=== PATIENT | female | born 1985 | race Caucasian/White ===

== ENCOUNTER 2016-08-10 14:37 | Emergency (ER) | payer SELFPAY ==
[~2016-08-10] VITALS: Ht 157.5 cm; Wt 86.4 kg
[~2016-08-10 14:37] MED LIST: ABILIFY5 MG PO; ADVIL 200MG TA200 MG PO; AMOXICILLIN 50500 MG PO; AMOXICILLIN 8751 TAB PO; BACTRIM DS 8001 TAB PO; BCP TD; BIRTH CONTROL; CEPHALEXIN500 M1 PO; CIPRO 500MG TA500 MG PO; DOXYCYCLINE 10100 MG PO; FLEET 135 ML135 ML RC; FLONASE NASAL S16 GM NS; FOLIC ACID; LORTAB 5/500 501 TAB PO; LORTAB 7.5/5001 TAB PO; MACROBID 1100 MG/CAP PO; MACROBID100 MG PO; MIRENA52 MG IU; MVI; NO HOME MEDICATIONS; NORCO 325 MG-51 TAB PO; OMNICEF 300MG300 MG PO; PHENERGAN 25 TA25 MG PO; PHENERGAN12.5 M1 PO; PRENATAL VITAMI1 TA5 PO; PRISTIQ 50 MG T50 MG PO; PROZAC40 MG PO; TYLENOL PM EXTR1 TA1 PO; ULTRAM50 MG PO; XANAX .25M0.25 MG/TA PO; ZANTAC 150150 MG PO; ZANTAC150 MG PO; ZOFRAN4 MG PO; ZYRTEC 10MG10 MG PO; [UNRECOGNIZED DRUG - OTHER]
[2016-08-10 14:42] VITALS: BP 147/88
[2016-08-10] MEDS ORDERED: DEPAKOTE 250MG250 MG PO (14:45)
[2016-08-10 15:31] LABS: AMPHETAMINE URINE NEGATIVE; BARBITURATES URINE NEGATIVE; BENZODIAZEPINES URINE NEGATIVE; BUPRENORPHINE URINE NEGATIVE; METHADONE URINE NEGATIVE; OPIATES URINE NEGATIVE; OXYCODONE URINE NEGATIVE; PHENCYCLIDINE URINE NEGATIVE; PROPOXYPHENE URINE NEGATIVE; THC CANNABINOIDS URINE POSITIVE
[2016-08-10 15:41] LABS: BASO % 0.4 % (0.0-2.0); EOS # 0.2 (0.0-0.7); EOS % 1.9 % (0-4.0); GRAN # 7.4 (1.4-6.5); GRAN % 73.8 % (42.2-75.2); HEMATOCRIT 42.9 % (37.0-47.0); HEMOGLOBIN 13.7 g/dl (12.5-16.0); LYMPH # 1.8 (1.2-3.4); LYMPH % 17.8 % (20.0-51.0); MEAN CELL VOLUME 89 fl (80.0-100.0); MEAN CORPUSCULAR HEMOGLOBIN 28 pg (27.0-31.0); MEAN CORPUSCULAR HGB CONC 32 g/dl (33.0-37.0); MEAN PLATELET VOLUME 9.4 fl (7.4-10.4); MONO # 0.6 (0.1-0.6); MONO % 5.8 % (1.7-9.3); PLATELET COUNT 318 K/mm3 (130-400); RED BLOOD COUNT 4.82 M/mm3 (4.10-5.30); REDCELL DISTRIBUTION WIDTH-CV 12.7 % (11.5-14.5)
[2016-08-10 16:22] LABS: ACETAMINOPHEN < 10 ug/mL (10-30); ADJUSTED CALCIUM 9.4 mg/dL (8.4-10.2); ALANINE AMINOTRANSFERASE 22 U/L (9-52); ALBUMIN 4.4 gm/dL (3.5-5.0); ALKALINE PHOSPHATASE 97 U/L (50-136); ANION GAP 13 mmol/L (7-16); BILIRUBIN,TOTAL 0.7 mg/dL (0.0-1.0); BLOOD UREA NITROGEN 10 mg/dL (7-17); CALCIUM 9.7 mg/dL (8.4-10.2); CARBON DIOXIDE 25 mmol/L (22-30); CHLORIDE 102 mmol/L (98-107); CREATININE, serum 0.77 mg/dL (0.52-1.25); GLUCOSE 101 mg/dL (74-106); POTASSIUM 3.7 mmol/L (3.4-5.0); SALICYLATE < 1.0 mg/dL; SODIUM 140 mmol/L (137-145); TOTAL PROTEIN 7.7 gm/dL (6.4-8.2)
[2016-08-10 16:29] VITALS: PULSE 92
[2016-10-31] MEDS ORDERED: OMNICEF 300MG300 MG PO (23:22)
== END 2016-08-10 19:22 | disposition home or self-care (01) ==
LOC: COL.ER 14:37
PROVIDERS: Nurse Practitioner
DX: F32.9 Major depressive disorder, single episode, unspecified (principal); R45.851 Suicidal ideations; Z91.5 Personal history of self-harm; T42.6X6A Underdosing of other antiepileptic and sedative-hypnotic drugs, initial encounter

== ENCOUNTER 2016-10-30 10:50 | Emergency (ER) | payer SELFPAY ==
[~2016-10-30] VITALS: Ht 157.5 cm; Wt 86.4 kg
[~2016-10-30 10:50] MED LIST changes: +DEPAKOTE 250MG250 MG PO
[2016-10-30 10:54] VITALS: TEMP 98
[2016-10-30] MEDS ORDERED: VRAYLAR3 MG PO (11:19)
[2016-10-30 11:49] LABS: PH 7 (5-8); SQUAMOUS EPITHELIAL 0-2 /hpf; URINE APPEARANCE Cloudy; URINE BACTERIA Rare /hpf; URINE BILIRUBIN Negative (NEGATIVE); URINE BLOOD 1+ (NEGATIVE); URINE COLOR Yellow; URINE GLUCOSE Negative (NEGATIVE); URINE KETONE Negative (NEGATIVE); URINE RBC 20-50 /hpf; URINE UROBILINOGEN Negative (NEGATIVE); URINE WBC >50 /hpf
[2016-10-30 11:55] LABS: BASO % 0.2 % (0.0-2.0); EOS # 0.1 (0.0-0.7); EOS % 0.9 % (0-4.0); GRAN # 5.8 (1.4-6.5); GRAN % 70.2 % (42.2-75.2); LYMPH # 1.9 (1.2-3.4); LYMPH % 22.7 % (20.0-51.0); MEAN CELL VOLUME 89 fl (80.0-100.0); MEAN CORPUSCULAR HEMOGLOBIN 29 pg (27.0-31.0); MEAN CORPUSCULAR HGB CONC 33 g/dl (33.0-37.0); MONO # 0.5 (0.1-0.6); MONO % 5.6 % (1.7-9.3); PLATELET COUNT 250 K/mm3 (130-400); RED BLOOD COUNT 4.14 M/mm3 (4.10-5.30); REDCELL DISTRIBUTION WIDTH-CV 12.7 % (11.5-14.5); WHITE BLOOD COUNT 8.2 K/mm3 (4.8-10.8)
[2016-10-30 11:56] LABS: HEMATOCRIT 36.7 % (37.0-47.0)
[2016-10-30 12:11] LABS: ADJUSTED CALCIUM 9.1 mg/dL (8.4-10.2); ALANINE AMINOTRANSFERASE 12 U/L (9-52); ALKALINE PHOSPHATASE 66 U/L (50-136); ANION GAP 14 mmol/L (7-16); BILIRUBIN,TOTAL 0.3 mg/dL (0.0-1.0); BLOOD UREA NITROGEN 10 mg/dL (7-17); CALCIUM 9.1 mg/dL (8.4-10.2); CARBON DIOXIDE 20 mmol/L (22-30); CHLORIDE 108 mmol/L (98-107); CREATININE, serum 0.73 mg/dL (0.52-1.25); GLUCOSE 84 mg/dL (74-106); POTASSIUM 3.8 mmol/L (3.4-5.0); SODIUM 141 mmol/L (137-145); TOTAL PROTEIN 7.5 gm/dL (6.4-8.2)
[2016-10-30 12:25] LABS: TROPONIN-I < 0.012 ng/mL (0.000-0.034)
[2016-10-30 12:27] LABS: PROLACTIN 24.6 ng/mL (3.0-18.6)
[2016-10-30 12:45] VITALS: BP 116/68; PULSE 86
[2016-10-31] MEDS ORDERED: OMNICEF 300MG300 MG PO (23:22)
== END 2016-10-30 12:46 | disposition home or self-care (01) ==
LOC: COL.ER 10:50
PROVIDERS: Emergency Medicine
DX: R56.9 Unspecified convulsions (principal); R53.81 Other malaise; R53.83 Other fatigue; F99 Mental disorder, not otherwise specified
CPT/HCPCS: J2405; J7030

== ENCOUNTER 2017-03-03 11:55 | Emergency (ER) | payer MEDICAID ==
[~2017-03-03] VITALS: Ht 157.5 cm; Wt 85.9 kg
[~2017-03-03 11:55] MED LIST changes: +VRAYLAR3 MG PO
[2017-03-03 11:59] VITALS: TEMP 99.3
[2017-03-03] MEDS ORDERED: MACROBID 1100 MG/CAP PO (12:02)
[2017-03-03] MEDS ORDERED: ZOFRAN 4MG T4 MG/TAB PO (12:02)
[2017-03-03 12:53] LABS: BASO % 0.3 % (0.0-2.0); EOS # 0.1 (0.0-0.7); EOS % 0.6 % (0-4.0); GRAN # 7.5 (1.4-6.5); GRAN % 76.9 % (42.2-75.2); LYMPH # 1.5 (1.2-3.4); LYMPH % 15.6 % (20.0-51.0); MEAN CELL VOLUME 88 fl (80.0-100.0); MEAN CORPUSCULAR HGB CONC 33 g/dl (33.0-37.0); MONO # 0.6 (0.1-0.6); MONO % 6.1 % (1.7-9.3); PLATELET COUNT 240 K/mm3 (130-400); RED BLOOD COUNT 4.02 M/mm3 (4.10-5.30); WHITE BLOOD COUNT 9.7 K/mm3 (4.8-10.8)
[2017-03-03 12:58] LABS: HEMATOCRIT 35.4 % (37.0-47.0); HEMOGLOBIN 11.5 g/dl (12.5-16.0); MEAN CORPUSCULAR HEMOGLOBIN 29 pg (27.0-31.0)
[2017-03-03 13:05] LABS: COLLECTION METHOD CLEAN CATCH
[2017-03-03 13:26] LABS: BUDDING YEAST Present /hpf; MUCOUS Present /lpf; PH 7 (5-8); URINE APPEARANCE Clear; URINE BACTERIA Rare /hpf; URINE BILIRUBIN Negative (NEGATIVE); URINE BLOOD Negative (NEGATIVE); URINE COLOR Yellow; URINE GLUCOSE Negative (NEGATIVE); URINE KETONE Trace (NEGATIVE); URINE LEUKOCYTE ESTERASE 3+ (NEGATIVE); URINE PROTEIN(semi-quant) Negative (NEGATIVE)
[2017-03-03 13:35] LABS: URINE WBC 20-50 /hpf
[2017-03-03 14:02] LABS: ADJUSTED CALCIUM 8.8 mg/dL (8.4-10.2); ALBUMIN 3.8 gm/dL (3.5-5.0); BILIRUBIN,TOTAL 0.3 mg/dL (0.0-1.0); CALCIUM 8.6 mg/dL (8.4-10.2); CREATININE, serum 0.63 mg/dL (0.52-1.25)
[2017-03-03 14:12] VITALS: BP 118/67; PULSE 84
== END 2017-03-03 14:12 | disposition home or self-care (01) ==
LOC: COL.ER 11:55
PROVIDERS: Emergency Medicine; Physician Assistant
DX: O21.9 Vomiting of pregnancy, unspecified (principal); Z3A.10 10 weeks gestation of pregnancy
CPT/HCPCS: J2765; J7030

== ENCOUNTER 2017-12-20 09:43 | Emergency (ER) | payer MEDICAID ==
[~2017-12-20] VITALS: Ht 157.5 cm; Wt 86.4 kg
[~2017-12-20 09:43] MED LIST changes: +ZOFRAN 4MG T4 MG/TAB PO
[2017-12-20 09:46] VITALS: TEMP 98.9
[2017-12-20] MEDS ORDERED: FLONASE NASAL S16 GM NS (10:14)
[2017-12-20] MEDS ORDERED: ZYRTEC 10MG10 MG PO (10:14)
[2017-12-20] MEDS ORDERED: GLUCOSAMINE 1000 PO (10:15)
[2017-12-20] MEDS ORDERED: TYLENOL 500MG500 MG PO (10:15)
[2017-12-20] MEDS ORDERED: MOTRIN 600600 MG/TAB PO (10:16)
[2017-12-20 10:28] LABS: COLLECTION METHOD CLEAN CATCH
[2017-12-20 10:31] LABS: BASO # 0.1 (0.0-0.2); BASO % 0.7 % (0.0-2.0); EOS # 0.5 (0.0-0.7); EOS % 6.6 % (0-4.0); GRAN # 4.4 (1.4-6.5); GRAN % 59.5 % (42.2-75.2); HEMOGLOBIN 11.5 g/dl (12.5-16.0); LYMPH # 1.8 (1.2-3.4); LYMPH % 25.2 % (20.0-51.0); MEAN CELL VOLUME 86 fl (80.0-100.0); MEAN CORPUSCULAR HEMOGLOBIN 27 pg (27.0-31.0); MEAN CORPUSCULAR HGB CONC 32 g/dl (33.0-37.0); MEAN PLATELET VOLUME 9.8 fl (7.4-10.4); MONO # 0.6 (0.1-0.6); MONO % 7.7 % (1.7-9.3); PLATELET COUNT 277 K/mm3 (130-400); RED BLOOD COUNT 4.25 M/mm3 (4.10-5.30); REDCELL DISTRIBUTION WIDTH-CV 13.8 % (11.5-14.5)
[2017-12-20 10:35] LABS: HEMATOCRIT 36.4 % (37.0-47.0)
[2017-12-20 10:39] LABS: PH 5 (5-8); SQUAMOUS EPITHELIAL 0-2 /hpf; URINE APPEARANCE Clear; URINE BACTERIA None Seen /hpf; URINE BILIRUBIN Negative (NEGATIVE); URINE BLOOD 3+ (NEGATIVE); URINE COLOR Straw; URINE GLUCOSE Negative (NEGATIVE); URINE KETONE Negative (NEGATIVE); URINE LEUKOCYTE ESTERASE Negative (NEGATIVE); URINE NITRATE Negative (NEGATIVE); URINE PROTEIN(semi-quant) Negative (NEGATIVE); URINE RBC >50 /hpf; URINE UROBILINOGEN Negative (NEGATIVE)
[2017-12-20 10:52] LABS: ALBUMIN 3.8 gm/dL (3.5-5.0); BILIRUBIN,TOTAL 0.2 mg/dL (0.0-1.0); C-REACTIVE PROTEIN 0.6 mg/dL (0.0-0.9); CALCIUM 8.4 mg/dL (8.4-10.2); CREATININE, serum 0.72 mg/dL (0.52-1.25)
[2017-12-20] MEDS ORDERED: BACTRIM DS 8001 TAB PO (12:12)
[2017-12-20] MEDS ORDERED: CARAFATE 1GM1 G PO (12:12)
[2017-12-20] MEDS ORDERED: PROTONIX 40MG T40 MG PO (12:12)
[2017-12-20 12:41] VITALS: BP 106/82; PULSE 56
== END 2017-12-20 12:42 | disposition home or self-care (01) ==
LOC: COL.ER 09:43
PROVIDERS: Emergency Medicine
DX: H60.01 Abscess of right external ear (principal); M06.9 Rheumatoid arthritis, unspecified; Z86.14 Personal history of Methicillin resistant Staphylococcus aureus infection; Z79.51 Long term (current) use of inhaled steroids
CPT/HCPCS: J2405; J7030

== ENCOUNTER → 2018-02-05 | Outpatient (CLI) | payer MEDICAID ==
[~2018-02-05] MED LIST changes: +CARAFATE 1GM1 G PO; +GLUCOSAMINE 1000 PO; +MOTRIN 600600 MG/TAB PO; +PROTONIX 40MG T40 MG PO; +TYLENOL 500MG500 MG PO
== END ==
LOC: COL.RAD 08:08
DX: M19.021 Primary osteoarthritis, right elbow (principal)
CPT/HCPCS: A9585

== ENCOUNTER 2018-08-16 10:14 | Emergency (ER) | payer MEDICAID ==
[~2018-08-16] VITALS: Ht 157.5 cm; Wt 90.9 kg
[2018-08-16 10:23] VITALS: TEMP 97.9
[2018-08-16] MEDS ORDERED: FIORINAL 325 MG1 CAP PO (11:24)
[2018-08-16 12:15] VITALS: BP 107/63; PULSE 62
== END 2018-08-16 12:16 | disposition home or self-care (01) ==
LOC: COL.ER 10:14
DX: R51 Headache (principal); F31.9 Bipolar disorder, unspecified; K21.9 Gastro-esophageal reflux disease without esophagitis; Z98.51 Tubal ligation status; Z79.51 Long term (current) use of inhaled steroids
CPT/HCPCS: J1885

== ENCOUNTER 2018-08-27 10:40 | Emergency (ER) | payer MEDICAID ==
[~2018-08-27] VITALS: Ht 157.5 cm; Wt 90.9 kg
[~2018-08-27 10:40] MED LIST changes: +FIORINAL 325 MG1 CAP PO
[2018-08-27 10:47] VITALS: TEMP 97
[2018-08-27 11:25] LABS: BASO % 0.5 % (0.0-2.0); EOS # 0.1 (0.0-0.7); EOS % 1.6 % (0-4.0); GRAN # 5.3 (1.4-6.5); GRAN % 66.1 % (42.2-75.2); HEMATOCRIT 37.2 % (37.0-47.0); HEMOGLOBIN 11.8 g/dl (12.5-16.0); LYMPH % 24.8 % (20.0-51.0); MEAN CELL VOLUME 86 fl (80.0-100.0); MEAN CORPUSCULAR HEMOGLOBIN 27 pg (27.0-31.0); MEAN CORPUSCULAR HGB CONC 32 g/dl (33.0-37.0); MEAN PLATELET VOLUME 9.6 fl (7.4-10.4); MONO # 0.5 (0.1-0.6); MONO % 6.6 % (1.7-9.3); PLATELET COUNT 281 K/mm3 (130-400); RED BLOOD COUNT 4.31 M/mm3 (4.10-5.30); REDCELL DISTRIBUTION WIDTH-CV 13.2 % (11.5-14.5)
[2018-08-27 11:40] LABS: ALBUMIN 4.1 gm/dL (3.5-5.0); BILIRUBIN,TOTAL 0.4 mg/dL (0.0-1.0); C-REACTIVE PROTEIN 0.9 mg/dL (0.0-0.9); CALCIUM 9.3 mg/dL (8.4-10.2); CREATININE, serum 0.64 (0.52-1.25); TOTAL PROTEIN 7.8 gm/dL (6.4-8.2)
[2018-08-27 11:54] LABS: THYROXINE (T4)-TOTAL 9.6 ug/dL (5.5-11.0)
[2018-08-27 12:36] LABS: COLLECTION METHOD CLEAN CATCH
[2018-08-27 12:45] LABS: PH 7 (5-8); SQUAMOUS EPITHELIAL 0-2 /hpf; URINE APPEARANCE Clear; URINE BACTERIA None Seen /hpf; URINE BILIRUBIN Negative (NEGATIVE); URINE BLOOD Negative (NEGATIVE); URINE COLOR Straw; URINE GLUCOSE Negative (NEGATIVE); URINE KETONE Negative (NEGATIVE); URINE LEUKOCYTE ESTERASE Negative (NEGATIVE); URINE NITRATE Negative (NEGATIVE); URINE PROTEIN(semi-quant) Negative (NEGATIVE); URINE RBC 0-2 /hpf; URINE UROBILINOGEN Negative (NEGATIVE)
[2018-08-27 13:27] VITALS: BP 105/75; PULSE 70
== END 2018-08-27 13:29 | disposition home or self-care (01) ==
LOC: COL.ER 10:40
PROVIDERS: Physician Assistant
DX: R53.81 Other malaise (principal); F31.9 Bipolar disorder, unspecified; Z98.51 Tubal ligation status
CPT/HCPCS: J2060; J7030

== ENCOUNTER 2018-10-02 08:13 | Outpatient (RCR) | payer MEDICAID ==
[2018-12-25] MEDS ORDERED: CYMBALTA 60MG60 MG PO (06:29)
[2018-12-25] MEDS ORDERED: OMNICEF 300MG300 MG PO (07:26)
[2018-12-25] MEDS ORDERED: ZOFRAN ODT8 MG PO (07:26)
[2018-12-25] MEDS ORDERED: PHENERGAN 25 TA25 MG PO (07:30)
== END 2018-12-25 17:56 | disposition home or self-care (01) ==
LOC: WSPT 08:13
DX: M17.0 Bilateral primary osteoarthritis of knee (principal); M79.7 Fibromyalgia

== ENCOUNTER 2018-12-25 06:10 | Emergency (ER) | payer MEDICAID ==
[~2018-12-25] VITALS: Ht 157.5 cm; Wt 86.4 kg
[2018-12-25] MEDS ORDERED: CYMBALTA 60MG60 MG PO (06:29)
[2018-12-25 06:30] LABS: COLLECTION METHOD CLEAN CATCH
[2018-12-25 06:37] LABS: MUCOUS Present /lpf; PH 8 (5-8); SQUAMOUS EPITHELIAL 0-2 /hpf; URINE APPEARANCE Hazy; URINE BACTERIA None Seen /hpf; URINE BILIRUBIN Negative (NEGATIVE); URINE BLOOD 2+ (NEGATIVE); URINE COLOR Yellow; URINE GLUCOSE Negative (NEGATIVE); URINE KETONE Negative (NEGATIVE); URINE LEUKOCYTE ESTERASE 2+ (NEGATIVE); URINE NITRATE Negative (NEGATIVE); URINE PROTEIN(semi-quant) 2+ (NEGATIVE); URINE RBC >50 /hpf; URINE UROBILINOGEN Negative (NEGATIVE)
[2018-12-25 06:59] LABS: BASO # 0.1 (0.0-0.2); BASO % 0.4 % (0.0-2.0); EOS # 0.5 (0.0-0.7); EOS % 3.4 % (0-4.0); GRAN # 10.4 (1.4-6.5); GRAN % 77.2 % (42.2-75.2); HEMATOCRIT 37.9 % (37.0-47.0); LYMPH # 1.7 (1.2-3.4); LYMPH % 12.4 % (20.0-51.0); MEAN CELL VOLUME 87 fl (80.0-100.0); MEAN CORPUSCULAR HEMOGLOBIN 28 pg (27.0-31.0); MEAN CORPUSCULAR HGB CONC 32 g/dl (33.0-37.0); MEAN PLATELET VOLUME 9.4 fl (7.4-10.4); MONO # 0.8 (0.1-0.6); MONO % 6.1 % (1.7-9.3); PLATELET COUNT 246 K/mm3 (130-400); RED BLOOD COUNT 4.35 M/mm3 (4.10-5.30); REDCELL DISTRIBUTION WIDTH-CV 13.7 % (11.5-14.5)
[2018-12-25 07:18] LABS: ALBUMIN 3.6 gm/dL (3.5-5.0); BILIRUBIN,TOTAL 0.2 mg/dL (0.0-1.0); C-REACTIVE PROTEIN 2.5 mg/dL (0.0-0.9); CALCIUM 8.6 mg/dL (8.4-10.2); CREATININE, serum 0.71 (0.52-1.25); POTASSIUM 3.9 mmol/L (3.4-5.0); TOTAL PROTEIN 6.7 gm/dL (6.4-8.2)
[2018-12-25] MEDS ORDERED: ZOFRAN ODT8 MG PO (07:26)
[2018-12-25] MEDS ORDERED: OMNICEF 300MG300 MG PO (07:26)
[2018-12-25] MEDS ORDERED: PHENERGAN 25 TA25 MG PO (07:30)
[2018-12-25 08:00] VITALS: BP 101/63; PULSE 80; TEMP 98.2
== END 2018-12-25 08:00 | disposition home or self-care (01) ==
LOC: COL.ER 06:10
PROVIDERS: Emergency Medicine
DX: N39.0 Urinary tract infection, site not specified (principal); K21.9 Gastro-esophageal reflux disease without esophagitis; Z87.442 Personal history of urinary calculi; Z98.51 Tubal ligation status; Z79.51 Long term (current) use of inhaled steroids
CPT/HCPCS: A4216; J0696; J1885; J2270; J2405; J7030

== ENCOUNTER 2019-01-31 13:36 | Emergency (ER) | payer MEDICAID ==
[~2019-01-31] VITALS: Ht 157.5 cm; Wt 86.4 kg
[~2019-01-31 13:36] MED LIST changes: +CYMBALTA 60MG60 MG PO; +ZOFRAN ODT8 MG PO
[2019-01-31 13:59] VITALS: BP 124/78; TEMP 99.3
[2019-01-31] MEDS ORDERED: BACTRIM DS 8001 TAB PO (16:43)
[2019-01-31 17:01] VITALS: PULSE 79
== END 2019-01-31 17:01 | disposition home or self-care (01) ==
LOC: COL.ER 13:36
DX: J34.0 Abscess, furuncle and carbuncle of nose (principal); M79.7 Fibromyalgia; Z79.51 Long term (current) use of inhaled steroids

== ENCOUNTER → 2019-02-02 | Outpatient (CLI) | payer MEDICAID | LOC: ZCOL.LAB 16:44 | DX: J34.89 Other specified disorders of nose and nasal sinuses (principal) ==

== ENCOUNTER 2019-03-12 11:16 | Emergency (ER) | payer MEDICAID ==
[~2019-03-12] VITALS: Ht 157.5 cm; Wt 85.5 kg
[2019-03-12 11:46] VITALS: BP 117/75; TEMP 99.1
[2019-03-12] MEDS ORDERED: TAGAMET200 MG PO (12:13)
[2019-03-12] MEDS ORDERED: ABILIFY 10MG TA10 MG PO (12:14)
[2019-03-12 12:49] LABS: BASO # 0.1 (0.0-0.2); BASO % 0.6 % (0.0-2.0); EOS # 0.3 (0.0-0.7); EOS % 2.9 % (0-4.0); GRAN % 64.3 % (42.2-75.2); HEMATOCRIT 39.5 % (37.0-47.0); HEMOGLOBIN 12.5 g/dl (12.5-16.0); LYMPH # 2.4 (1.2-3.4); LYMPH % 25.6 % (20.0-51.0); MEAN CELL VOLUME 87 fl (80.0-100.0); MEAN CORPUSCULAR HEMOGLOBIN 28 pg (27.0-31.0); MEAN CORPUSCULAR HGB CONC 32 g/dl (33.0-37.0); MEAN PLATELET VOLUME 9.4 fl (7.4-10.4); MONO # 0.6 (0.1-0.6); MONO % 6.2 % (1.7-9.3); PLATELET COUNT 244 K/mm3 (130-400); RED BLOOD COUNT 4.52 M/mm3 (4.10-5.30)
[2019-03-12 13:08] LABS: ALANINE AMINOTRANSFERASE 11 U/L (9-52); ALBUMIN 4.2 gm/dL (3.5-5.0); ALKALINE PHOSPHATASE 68 U/L (50-136); ANION GAP 9 mmol/L (7-16); AST,SGOT 22 U/L (15-37); BILIRUBIN,TOTAL 0.2 mg/dL (0.0-1.0); BLOOD UREA NITROGEN 11 mg/dL (7-17); CARBON DIOXIDE 25 mmol/L (22-30); CHLORIDE 107 mmol/L (98-107); CREATININE, serum 0.71 (0.52-1.25); GLUCOSE 94 mg/dL (74-106); POTASSIUM 3.8 mmol/L (3.4-5.0); SODIUM 141 mmol/L (137-145); TOTAL PROTEIN 7.4 gm/dL (6.4-8.2)
[2019-03-12 13:15] LABS: C-REACTIVE PROTEIN < 0.5 mg/dL (0.0-0.9)
[2019-03-12] MEDS ORDERED: PROTONIX 40MG T40 MG PO (13:24)
[2019-03-12 13:36] VITALS: PULSE 89
== END 2019-03-12 13:36 | disposition home or self-care (01) ==
LOC: COL.ER 11:16
PROVIDERS: Physician Assistant
DX: R10.13 Epigastric pain (principal); F31.9 Bipolar disorder, unspecified; Z87.442 Personal history of urinary calculi; Z98.51 Tubal ligation status

== ENCOUNTER 2021-01-07 09:56 | Emergency (ER) | payer MEDICAID ==
[~2021-01-07] VITALS: Ht 157.5 cm; Wt 86.4 kg
[~2021-01-07 09:56] MED LIST changes: +ABILIFY 10MG TA10 MG PO; +TAGAMET200 MG PO
[2021-01-07 10:03] VITALS: TEMP 97.8
[2021-01-07] MEDS ORDERED: REXULTI1 MG PO (10:24)
[2021-01-07] MEDS ORDERED: PRISTIQ 50 MG T50 MG PO (10:24)
[2021-01-07] MEDS ORDERED: ZOFRAN ODT4 MG PO (10:54)
[2021-01-07 11:17] VITALS: BP 112/75; PULSE 89
== END 2021-01-07 11:18 | disposition home or self-care (01) ==
LOC: COL.ER 09:56
DX: S06.0X0A Concussion without loss of consciousness, initial encounter (principal); F32.9 Major depressive disorder, single episode, unspecified; F41.9 Anxiety disorder, unspecified; Z79.899 Other long term (current) drug therapy; V48.5XXA Car driver injured in noncollision transport accident in traffic accident, initial encounter

== ENCOUNTER 2021-09-06 21:47 | Emergency (ER) | payer MEDICAID ==
[~2021-09-06] VITALS: Ht 157.5 cm; Wt 81.8 kg
[~2021-09-06 21:47] MED LIST changes: +REXULTI1 MG PO; +ZOFRAN ODT4 MG PO
[2021-09-06] MEDS ORDERED: PREDNISONE20 MG PO (22:26)
[2021-09-06 22:46] VITALS: BP 125/80; PULSE 87; TEMP 98.3
== END 2021-09-06 22:46 | disposition home or self-care (01) ==
LOC: COL.ER 21:47
DX: S50.862A Insect bite (nonvenomous) of left forearm, initial encounter (principal); Z28.310 Unvaccinated for COVID-19; W57.XXXA Bitten or stung by nonvenomous insect and other nonvenomous arthropods, initial encounter